=== PATIENT | female | born 1970 | race Asian ===

== ENCOUNTER → 2018-03-02 | Outpatient (CLI) | payer OTHER | LOC: FIMAGING 08:32 | PROVIDERS: ATTEND Obstetrics & Gynecology | DX: Z12.31 Encounter for screening mammogram for malignant neoplasm of breast (principal) ==

== ENCOUNTER 2018-07-29 22:51 | Observation (INO) | payer OTHER ==
[2018-07-29] MEDS ORDERED: ASPIRIN 81 MG CHEWABLE TAB PO ONE (23:05)
[2018-07-29] MEDS ORDERED: NS 1,000 ML IV ONE (23:05)
--- NOTE | 2018-07-29 23:17 | EDPHY ---
H & P Stated Complaint: high BP, chest pressure, SOB since 1600 Time Seen by Provider: 07/29/18 23:15 HPI/ROS: HPI CHIEF COMPLAINT: Chest pain, hypertension HISTORY OF PRESENT ILLNESS: This is a 48-year-old female, she arrives to the emergency room with chest heaviness substernal nonradiating. Also reports that her blood pressures been running high she has been very stressed at work over the last week. She reports she has had a more stressful 2 days. She describes heaviness substernal nonradiating. Also complains that her blood pressures been high in the 150s She arrives to emergency room complaining of substernal chest pressure. Nonradiating. Currently has chest discomfort 09/06. Substernal nonradiating. Past Medical History: Significant medical history for hypertension, hyperlipidemia, obesity Past Surgical History: No recent surgical history Social History: 2-3 drinks of alcohol per week. Works at [employer]. Family History: Denies any significant cardiovascular family history. ROS REVIEW OF SYSTEMS: 10 Systems were reviewed and negative with the exception of the elements mentioned in the history of present illness. Exam Constitutional triage nursing summary reviewed, vital signs reviewed, awake/ alert. Eyes normal conjunctivae and sclera, EOMI, PERRLA. HENT normal inspection, atraumatic, moist mucus membranes, no epistaxis, neck supple/ no meningismus, no raccoon eyes. Respiratory clear to auscultation bilaterally, normal breath sounds, no respiratory distress, no wheezing. Cardiovascular rate normal, regular rhythm, no murmur, no edema, distal pulses normal. Gastrointestinal soft, non-tender, no rebound, no guarding, normal bowel sounds, no distension, no pulsatile mass. Genitourinary no CVA tenderness. Musculoskeletal no midline vertebral tenderness, full range of motion, no calf swelling, no tenderness of extremities, no meningismus, good pulses, neurovascularly intact. Skin pink, warm, & dry, no rash, skin atraumatic. Neurologic awake, alert and oriented x 3, AAOx3, moves all 4 extremities equally, motor intact, sensory intact, CN II-XII intact, normal cerebellar, normal vision, normal speech. Psychiatric normal mood/affect. Heme/Lymph/Immune no lymphadenopathy. Differential Diagnosis: Differential diagnosis includes but is not limited to: ACS, atypical chest pain, pneumothorax, pneumonia, pulmonary embolism, aortic dissection, congestive heart failure, tumor, musculoskeletal pain, esophageal pain, GERD, peptic ulcer disease, pancreatitis Medical Decision Making: Plan for this patient IV establishment IV fluid bolus , full-dose aspirin, nitroglycerin, chest x-ray, EKG, troponin, D-dimer, cardiac nurse practitioner, rule out acute coronary syndrome. Re-evaluation: EKG interpretation by me on record in [facility] system. Impression time of EKG 2312, sinus rhythm rate of 86, with no signs of acute ischemia no ST elevation. ED x-ray chest one view negative for acute cardiopulmonary disease. Troponin noted be negative D-dimer negative Patient's chest discomfort improved nitroglycerin. Blood pressure improved. Given patient's cardiovascular risk factors which include her age, hypertension , hyperlipidemia, obesity, improvement nitroglycerin plan will be for admission the hospital for further chest pain evaluation. Discussed the need for admission to the hospital. Plan for admission for chest pain evaluation. Patient agrees for this. Dr. Stack Consulted agrees. Patient agrees for admission. Source: Patient - Personal History LMP (Females 10-55): 15-21 Days Ago Current Tetanus/Diphtheria Vaccine: Unsure - Medical/Surgical History Hx Asthma: No Hx Chronic Respiratory Disease: No Hx Diabetes: No Hx Cardiac Disease: No Hx Renal Disease: No Hx Cirrhosis: No Hx Alcoholism: No Hx HIV/AIDS: No Hx Splenectomy or Spleen Trauma: No Other PMH: HTN, high cholesterol - Social History Smoking Status: Never smoked Constitutional: Initial Vital Signs Temperature (C) 36.7 C 07/29/18 22:53 Heart Rate 83 07/29/18 22:53 Respiratory Rate 18 07/29/18 22:53 Blood Pressure 181/107 H 07/29/18 22:53 O2 Sat (%) 95 07/29/18 22:53 O2 Delivery Mode Room Air Allergies/Adverse Reactions: Sulfa (Sulfonamide Antibiotics) Allergy (Verified 07/29/18 22:57) Home Medications: Medication Instructions Recorded Atorvastatin Calcium [Lipitor 10 10 mg PO HS 07/29/18 mg (*)] Lisinopril [Zestril 10 mg (*)] 10 mg PO DAILY 07/29/18 Ibuprofen [Motrin (*)] 200 mg PO HS 07/30/18 Medical Decision Making - Data Points Laboratory Results: Laboratory Results 07/29/18 23:15 07/29/18 23:15 Medications Given: Discontinued Medications Aspirin (Aspirin) 324 mg PO EDNOW ONE Stop: 07/29/18 23:06 Last Admin: 07/29/18 23:23 Dose: 243 mg Enoxaparin Sodium (Lovenox) 40 mg SC DAILY [facility] Stop: 01/26/19 08:59 Last Admin: 07/30/18 11:28 Dose: Not Given Sodium Chloride (Ns) 1,000 mls @ 0 mls/hr IV EDNOW ONE; Wide Open PRN Reason: Protocol Stop: 07/29/18 23:06 Last Admin: 07/29/18 23:23 Dose: 1,000 mls Lisinopril (Zestril) 10 mg PO DAILY [facility] Stop: 01/26/19 08:59 Last Admin: 07/30/18 08:56 Dose: 10 mg Nitroglycerin (Nitrostat) 0.4 mg SL Q5M PRN PRN Reason: Chest Pain Last Admin: 07/29/18 23:36 Dose: 1 tab Point of Care Test Results: Chemistry 07/29/18 23:20 POC Troponin I 0.00 ng/mL ng/mL (0.00-0.08) Departure - Departure Disposition: [facility] Acute Clinical Impression: Chest pain Qualifiers: Chest pain type: unspecified Qualified Code(s): R07.9 - Chest pain, unspecified Condition: Fair
[2018-07-29] MEDS: NITROGLYCERIN 0.4 MG BTL SL PRN ×2 (23:24→23:36)
[2018-07-29 23:26] LABS: PLATELET COUNT 331 10^3/uL (150-400)
[2018-07-29 23:36] LABS: INR 1.04 (0.83-1.16); PROTIME(PATIENT) 13.2 SEC (12.0-15.0)
[2018-07-30] MEDS ORDERED: ACETAMINOPHEN 325 MG TAB PO PRN (00:45)
[2018-07-30] MEDS ORDERED: ONDANSETRON DISINTEGRATING 4 MG TAB PO PRN (00:45)
[2018-07-30] MEDS ORDERED: ONDANSETRON 4 MG/2 ML VIAL IVP PRN (00:45)
[2018-07-30] MEDS ORDERED: NITROGLYCERIN 0.4 MG BTL SL PRN (00:47)
--- NOTE | 2018-07-30 01:59 | PDGENHP ---
History and Physical - Chief Complaint Chest pain - History of Present Illness 48 yo F w/ hx of HTN and obesity presents with chest pain. The patient noted some "chest heaviness" at work today. She checked her BP and noted 158/95, which is high for her. Upon further questioning she tells me she has noted this same chest discomfort several times over the last few weeks. She has not noted a relation to exertion. Upon arrival to the ED her discomfort was helped by nitroglycerin. She does have a history of mild GERD but states that feels much different to this current discomfort. Work-up in the ED was unremarkable aside from elevated BP, which resolved after nitroglycerin. She is being admitted for chest pain protocol noted elevated HEART score. Case discussed with ED physician Dr. West; records reviewed and summarized above. History Information - Allergies/Home Medication List Allergies/Adverse Reactions: Sulfa (Sulfonamide Antibiotics) Allergy (Verified 07/29/18 22:57) Home Medications: Atorvastatin Calcium 07/29/18 [Last Taken Unknown] Lisinopril 07/29/18 [Last Taken Unknown] I have personally reviewed and updated: family history, medical history - Past Medical History hypertension - Surgical History Reports: no pertinent surgical hx - Family History Negative for: CAD - Social History Smoking Status: Never smoked Review of Systems Review of Systems: ROS: 10pt was reviewed & negative except for what was stated in HPI & below Physical Exam Physical Exam: Temp Pulse Resp BP Pulse Ox 36.7 C 75 16 129/84 H 95 07/29/18 22:53 07/29/18 23:43 07/29/18 23:43 07/29/18 23:43 07/29/18 23:43 Constitutional: no apparent distress, obese Eyes: PERRL, EOMI Ears, Nose, Mouth, Throat: moist mucous membranes, no oral mucosal ulcers Cardiovascular: regular rate and rhythym, no murmur, rub, or gallop Respiratory: no respiratory distress, clear to auscultation Gastrointestinal: normoactive bowel sounds, soft, non-tender abdomen Skin: warm, normal color Musculoskeletal: full muscle strength, no muscle tenderness Neurologic: AAOx3, CN II-XII Intact Psychiatric: interacting appropriately, not anxious Lab Data & Imaging Review 07/29/18 23:15 07/29/18 23:15 WBC 10.50 10^3/uL (3.80-9.50) H 07/29/18 23:15 RBC 5.03 10^6/uL (4.18-5.33) 07/29/18 23:15 Hgb 14.5 g/dL (12.6-16.3) 07/29/18 23:15 Hct 42.1 % (38.0-47.0) 07/29/18 23:15 MCV 83.7 fL (81.5-99.8) 07/29/18 23:15 MCH 28.8 pg (27.9-34.1) 07/29/18 23:15 MCHC 34.4 g/dL (32.4-36.7) 07/29/18 23:15 RDW 12.6 % (11.5-15.2) 07/29/18 23:15 Plt Count 331 10^3/uL (150-400) 07/29/18 23:15 MPV 8.2 fL (8.7-11.7) L 07/29/18 23:15 Neut % (Auto) 52.3 % (39.3-74.2) 07/29/18 23:15 Lymph % (Auto) 36.2 % (15.0-45.0) 07/29/18 23:15 [place] % (Auto) 6.8 % (4.5-13.0) 07/29/18 23:15 Eos % (Auto) 4.1 % (0.6-7.6) 07/29/18 23:15 Baso % (Auto) 0.4 % (0.3-1.7) 07/29/18 23:15 Nucleat RBC Rel Count 0.0 % (0.0-0.2) 07/29/18 23:15 Absolute Neuts (auto) 5.50 10^3/uL (1.70-6.50) 07/29/18 23:15 Absolute Lymphs (auto) 3.80 10^3/uL (1.00-3.00) H 07/29/18 23:15 Absolute Monos (auto) 0.71 10^3/uL (0.30-0.80) 07/29/18 23:15 Absolute Eos (auto) 0.43 10^3/uL (0.03-0.40) H 07/29/18 23:15 Absolute Basos (auto) 0.04 10^3/uL (0.02-0.10) 07/29/18 23:15 Absolute Nucleated RBC 0.00 10^3/uL (0-0.01) 07/29/18 23:15 Immature Gran % 0.2 % (0.0-1.1) 07/29/18 23:15 Immature Gran # 0.02 10^3/uL (0.00-0.10) 07/29/18 23:15 PT 13.2 SEC (12.0-15.0) 07/29/18 23:15 INR 1.04 (0.83-1.16) 07/29/18 23:15 APTT 28.6 SEC (23.0-38.0) 07/29/18 23:15 D-Dimer < 0.27 ug/mLFEU (0.00-0.50) 07/29/18 23:15 Sodium 134 mEq/L (135-145) L 07/29/18 23:15 Potassium 3.6 mEq/L (3.5-5.2) 07/29/18 23:15 Chloride 100 mEq/L (97-110) 07/29/18 23:15 Carbon Dioxide 25 mEq/l (22-31) 07/29/18 23:15 Anion Gap 9 mEq/L (6-14) 07/29/18 23:15 BUN 14 mg/dL (7-23) 07/29/18 23:15 Creatinine 0.7 mg/dL (0.6-1.0) 07/29/18 23:15 Estimated GFR > 60 07/29/18 23:15 Glucose 103 mg/dL (70-100) H 07/29/18 23:15 Calcium 9.1 mg/dL (8.5-10.4) 07/29/18 23:15 Magnesium 1.9 mg/dL (1.6-2.3) 07/29/18 23:15 Total Bilirubin 0.4 mg/dL (0.1-1.4) 07/29/18 23:15 Conjugated Bilirubin 0.2 mg/dL (0.0-0.5) 07/29/18 23:15 Unconjugated Bilirubin 0.2 mg/dL (0.0-1.1) 07/29/18 23:15 AST 24 IU/L (14-46) 07/29/18 23:15 ALT 39 IU/L (9-52) 07/29/18 23:15 Alkaline Phosphatase 85 IU/L (38-126) 07/29/18 23:15 POC Troponin I 0.00 ng/mL (0.00-0.08) 07/29/18 23:20 NT-Pro-B Natriuret Pep 32 pg/mL (0-125) 07/29/18 23:15 Total Protein 7.1 g/dL (6.3-8.2) 07/29/18 23:15 Albumin 4.0 g/dL (3.5-5.0) 07/29/18 23:15 Lipase 141 IU/L (23-300) 07/29/18 23:15 Visualized and Interpreted EKG results: Yes EKG Interpretation: Positive for: normal sinsus rhythm Assessment & Plan Assessment: 48 yo F w/ HTN presents w/ chest pain. Plan: 1. Chest pain - Described as "chest heaviness" and has occurred several times over the last few weeks. Per patient, this feels much different than her occasional GERD symptoms. HEART score of 4 denoting need for further evaluation. Initial ECG (personally reviewed/interpreted) without signs of ischemia and troponin negative. - Observe in PCU - Monitor on telemetry, trend cardiac enzymes - NTG/ECG PRN for chest pain - Treadmill stress test ordered for further evaluation 2. Hypertension - Continue home medications pending reconciliation Diet - NPO Code - Full Ppx - LMWH Dispo - Admit under observation status
[2018-07-30 07:58] LABS: PLATELET COUNT 282 10^3/uL (150-400)
[2018-07-30] MEDS ORDERED: LISINOPRIL 10 MG TAB PO SCH (09:00)
[2018-07-30] MEDS ORDERED: ENOXAPARIN 40 MG/0.4 ML SYR SC SCH (09:00)
--- NOTE | 2018-07-30 14:25 | CPR ---
[f rep st] NONINVASIVE CARDIAC PROCEDURE REPORT DATE OF PROCEDURE: 07/30/2018 REPORT TITLE: Exercise Treadmill Test INDICATION FOR PROCEDURE: Chest pressure and abnormal EKG. PRE: After obtaining informed consent, patient was placed on electrocardiogram. Initial EKG shows s inus rhythm, normal axis, nonspecific T-wave abnormalities in inferior leads with nondiagnostic Q-wav es in inferior leads. The patient reports no chest pain, pressure or symptoms suggestive of ischemia . Initial blood pressure of 132/88, saturation 96% on room air. STRESS: The patient placed on exercise treadmill, following standard Arnold protocol with the followi ng findings. 1. Patient exercised for 6 minutes and 34 seconds. 2. 7.7 METS. 3. Patient obtained a heart rate of 171 beats per minute, which was 100% of maximum predicted heart rate. 4. The patient had no chest pain, pressure or symptoms of ischemia during exercise. 5. The patient was noted to have [address] depression, negative for ischemia. 6. No arrhythmias were noted. 7. SpO2 greater than 90% throughout testing. 8. BP response: Rest 132/88, peak 196/84. 9. Testing was stopped due to maximum effort. 10. Mcleod treadmill score of 6, placing patient at low cardiovascular risk. RECOVERY: Patient recovered for 5 minutes with heart rate and blood pressure returned back to [facility] [place]. Remained asymptomatic, no arrhythmias. IMPRESSION: A 48-year-old female with episode of chest pressure and noted mildly abnormal electrocar diogram undergoing exercise treadmill testing, able to go for 6 minutes and 34 seconds obtaining 100% of maximum predicted heart rate with no ST shifts suggesting of ischemia at peak exercise, no arrhyt hmias. She was asymptomatic. Vital signs are stable. The patient was taken back to her room. [facility], Dr. Nelson, was notified. /[id number]/MODL
--- NOTE | 2018-07-30 16:13 | ASMTCMCOM ---
CM Note CM Note Notes: 48 y/o admitted yesterday with chest pain. Reviewed chart. No therapies ordered. Pt lives at home with . Is independent with ADLs. Works at [employer]. CM will be available if needs change. CM D/C plan: Likely independent to home Date Signed: 07/30/2018 04:12 PM Electronically Signed By:Yue Hartman
[2018-07-30 16:30] VITALS: BP 134/75
[2018-07-30] MEDS ORDERED: ATORVASTATIN CALCIUM 10 MG TAB PO SCH (21:00)
--- NOTE | 2018-07-31 08:23 | CPEKG ---
Test Reason : OPEN Blood Pressure : / mmHG Vent. Rate : 086 BPM Atrial Rate : 087 BPM P-R Int : 177 ms QRS Dur : 095 ms QT Int : 369 ms P-R-T Axes : 048 024 020 degrees QTc Int : 442 ms Sinus rhythm Prominent P waves, nondiagnostic Confirmed by Aram Bland ([id number]) on 07/31/2018 8:23:11 AM Referred By: Aram Bland Confirmed By:Aram Bland
== END 2018-07-30 16:42 | disposition home or self-care (01) ==
LOC: F2W 07-30 02:37
PROVIDERS: ADMIT Student in an Organized Health Care Education/Training Program; ATTEND Internal Medicine
DX: R07.89 Other chest pain (principal); I10 Essential (primary) hypertension; E78.5 Hyperlipidemia, unspecified
CPT/HCPCS: 71045; 93005; 93017; G0378; 84484-ER